=== PATIENT | female | born 1960 | race Caucasian/White ===

== ENCOUNTER 2021-06-19 13:53 | Outpatient (CLI) | payer BC | END 2021-06-19 13:54 | disposition home or self-care (01) | LOC: BICMAMMO 13:53 | PROVIDERS: ATTEND Family Medicine | DX: M85.89 Other specified disorders of bone density and structure, multiple sites (principal); M81.0 Age-related osteoporosis without current pathological fracture | CPT/HCPCS: 77080 ==

== ENCOUNTER 2023-04-04 14:44 | Outpatient (CLI) | payer MEDICARE, OTHER | END 2023-04-04 14:45 | disposition home or self-care (01) | LOC: SCSRAD 14:44 | PROVIDERS: ATTEND Family Medicine | DX: M25.552 Pain in left hip (principal) ==